=== PATIENT | male | born 2000 | race Caucasian/White ===

== ENCOUNTER 2019-02-24 15:51 | Emergency (ER) | payer OTHER ==
[~2019-02-24] VITALS: Ht 175.3 cm; Wt 72.7 kg
--- NOTE | 2019-02-24 17:27 | REP ---
Right femur: Four views. History: Pain after fall. Findings: Four views right femur demonstrate normal bones, joints and soft tissues. No fracture or subluxation is seen. Impression: Negative right femur radiographs. No fracture seen. Electronically Signed by Westley Terry MD 02/24/2019 05:18 P
[2019-02-24 17:35] VITALS: BP 129/62
--- NOTE | 2019-02-24 17:38 | REP ---
Pelvis right hip: Two views. History: Injury. Findings: AP view of the pelvis and AP view of the right hip are presented. These demonstrate an intact bony pelvic ring and proximal femur. No hip, pelvic, or sacral fracture is visible. Impression: Negative AP radiographs of the pelvis and right hip. Electronically Signed by Westley Terry MD 02/24/2019 05:29 P
[2019-02-24] MEDS ORDERED: KETOROLAC 30 MG/ML VIAL (J1885) IV ONE (19:00)
[2019-02-24] MEDS ORDERED: KETO10TAB PO (20:11)
== END 2019-02-24 20:23 | disposition home or self-care (01) ==
LOC: M ED 15:51
DX: S76.001A Unspecified injury of muscle, fascia and tendon of right hip, initial encounter (principal); S76.211A Strain of adductor muscle, fascia and tendon of right thigh, initial encounter; X58.XXXA Exposure to other specified factors, initial encounter; Y92.89 Other specified places as the place of occurrence of the external cause; Y99.0 Civilian activity done for income or pay
CPT/HCPCS: 73502; 73552; 96374; 99284; J1885

== ENCOUNTER 2019-09-02 09:53 | Emergency (ER) | payer OTHER ==
[~2019-09-02] VITALS: Ht 175.3 cm; Wt 80.5 kg
[~2019-09-02 09:53] MED LIST: KETO10TAB PO
[2019-09-02 10:45] LABS: BASO % 0.5 % (0.0-1.0); EOS % 0.5 % (0.0-3.0); HEMOGLOBIN 15.4 g/dl (13.5-17.5); LYMPH # 1.9 10^3/uL (1.5-5.0); LYMPH % 29.9 % (24.0-44.0); MEAN CORPUSCULAR HEMOGLOBIN 31.8 pg (27.0-33.0); MEAN CORPUSCULAR HGB CONC 34.2 g/dl (32.0-36.5); MEAN CORPUSCULAR VOLUME 92.8 fl (80.0-96.0); MONO # 0.7 10^3/uL (0.0-0.8); MONO % 10.3 % (0.0-5.0); NEUTROPHILS # 3.8 10^3/uL (1.5-8.5); NEUTROPHILS % 58.5 % (36.0-66.0); PLATELET COUNT, AUTOMATED 238 10^3/uL (150-450); RED BLOOD COUNT 4.85 10^6/uL (4.30-6.10); WHITE BLOOD COUNT 6.5 10^3/uL (4.0-10.0)
[2019-09-02 11:10] LABS: ALBUMIN 4.3 GM/DL (3.2-5.2); ALT/SGPT 27 U/L (12-78); BILIRUBIN,DIRECT 0.1 MG/DL (0.0-0.2); BILIRUBIN,TOTAL 0.5 MG/DL (0.2-1.0); BLOOD UREA NITROGEN 16 MG/DL (7-18); CALCIUM LEVEL 9.3 MG/DL (8.5-10.1); CARBON DIOXIDE LEVEL 27 MEQ/L (21-32); CHLORIDE LEVEL 108 MEQ/L (98-107); CREATININE FOR GFR 0.89 MG/DL (0.70-1.30); GLUCOSE, FASTING 86 MG/DL (70-100); LIPASE 65 U/L (73-393); POTASSIUM SERUM 4.2 MEQ/L (3.5-5.1); SODIUM LEVEL 139 MEQ/L (136-145); TOTAL PROTEIN 7.7 GM/DL (6.4-8.2)
[2019-09-02] MEDS ORDERED: ISOVUE-370 76% 100ML VIAL (Q9967) As Ordered ONE (12:02)
[2019-09-02 13:01] VITALS: BP 138/77
--- NOTE | 2019-09-02 13:11 | REP ---
CT of the abdomen pelvis with IV contrast, without bowel contrast for right lower quadrant abdominal pain: There are no comparisons. The appendix has a normal appearance. There is no pericecal inflammation or abscess. There is mild wall thickening of the distal terminal ileum. This is nonspecific at this time. Follow-up is recommended. There is no bowel distension or obstruction. There are no inflammatory changes in the mesentery. There is no ascites. There is no mesenteric adenopathy. The visualized lung conrad are unremarkable. The hepatic parenchyma, gallbladder, pancreas, spleen, adrenals, kidneys and abdominal aorta are. The bowel and mesentery are otherwise unremarkable pelvis: There is no adenopathy or ascites. The bladder is unremarkable. Impression: The appendix has a normal appearance by CT. There is no pericecal inflammation or abscess. There is mild wall thickening of the distal terminal ileum. This is nonspecific. Follow-up is recommended. Electronically Signed by Benny Odonnell MD 09/02/2019 01:03 P
--- NOTE | 2019-09-02 16:30 | ED PDOC ---
Post-Departure Follow-Up del payton faxed formal report of ct abd/p for fu Sushila Bagley MD Sep 02, 2019 16:30
== END 2019-09-02 13:02 | disposition home or self-care (01) ==
LOC: M ED 09:53
DX: R11.2 Nausea with vomiting, unspecified (principal)
CPT/HCPCS: 74177; 80048; 80076; 81001; 83690; 85025; 99284; Q9967